=== PATIENT | male | born 1985 | race American Indian/Alaskan Native ===

== ENCOUNTER 2020-08-11 12:46 | Emergency (ER) | payer SELFPAY ==
[2020-08-11 12:54] VITALS: BP 122/72
[2020-08-11] MEDS ORDERED: predniSONE 20 MG TAB PO ONE (15:04)
[2020-08-11] MEDS ORDERED: BUTALB/ACETAMINOPHEN/CAFFEINE TAB PO ONE (15:04)
[2020-08-11] MEDS ORDERED: KETOROLAC 10 MG TAB PO ONE (15:06)
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
== END 2020-08-11 16:38 | disposition home or self-care (01) ==
LOC: ED 12:46
DX: S16.1XXA Strain of muscle, fascia and tendon at neck level, initial encounter (principal); S09.90XA Unspecified injury of head, initial encounter; F17.200 Nicotine dependence, unspecified, uncomplicated; V89.2XXA Person injured in unspecified motor-vehicle accident, traffic, initial encounter; Y93.89 Activity, other specified; Y92.410 Unspecified street and highway as the place of occurrence of the external cause; Y99.8 Other external cause status
CPT/HCPCS: 70450; 99283; J7512